=== PATIENT | female | born 1945 | race Two or more races ===

== ENCOUNTER → 2017-10-29 | Outpatient (REF) | payer MEDICARE, OTHER ==
[2017-10-29 12:42] LABS: ESTIMATED AVERAGE GLUCOSE 131 MG/DL (60-110); HEMOGLOBIN A1c 6.2 %
[2017-10-29 12:52] LABS: CHOLESTEROL LEVEL 232 MG/DL (<200); HDL CHOLESTEROL 50 MG/DL (>40); LDL CHOLESTEROL 142.6 MG/DL (<100); NON-HDL-C 182 MG/DL; TRIGLYCERIDES LEVEL 197 MG/DL (<150)
[2017-10-29 13:04] LABS: TOTAL 25(OH) VITAMIN D 34.4 NG/ML (30.0-100.0)
== END ==
LOC: M SFHCCLAY 08:48
DX: Z86.39 Personal history of other endocrine, nutritional and metabolic disease (principal); E78.5 Hyperlipidemia, unspecified; E55.9 Vitamin D deficiency, unspecified
CPT/HCPCS: 83036

== ENCOUNTER → 2018-05-27 | Outpatient (REF) | payer MEDICARE, OTHER ==
[2018-05-27 12:11] LABS: TOTAL 25(OH) VITAMIN D 46.7 NG/ML (30.0-100.0)
[2018-05-27 12:12] LABS: CHOLESTEROL LEVEL 225 MG/DL (<200); HDL CHOLESTEROL 50 MG/DL (>40); LDL CHOLESTEROL 142.2 MG/DL (<100); NON-HDL-C 175 MG/DL; TRIGLYCERIDES LEVEL 164 MG/DL (<150)
[2018-05-27 12:45] LABS: CREATININE, URINE 44.4 MG/DL; MALB URINE SIEMENS 5.7 MG/L; MAU/CREAT RATIO 12.8 MCG/MG (0.0-30.0); TOTAL PROTEIN,RANDOM URINE 6.1 MG/DL (0.0-12.0)
[2018-05-27 15:01] LABS: ESTIMATED AVERAGE GLUCOSE 123 MG/DL (60-110); HEMOGLOBIN A1c 5.9 %
== END ==
LOC: M SFHCCLAY 08:32
DX: E78.5 Hyperlipidemia, unspecified (principal); Z86.39 Personal history of other endocrine, nutritional and metabolic disease; E55.9 Vitamin D deficiency, unspecified
CPT/HCPCS: 83036

== ENCOUNTER → 2018-11-09 | Outpatient (CLI) | payer MEDICARE, OTHER ==
[~2018-11-09] MED LIST: BISO5TAB2 PO; HUMI40KI2 SC; LISI-542 PO; OMEP20CA3 PO; TRAM50TA2 PO; VITA50005 PO
--- NOTE | 2018-11-09 11:47 | REP ---
Chest two views HISTORY: Preop Comparison: None The lungs are clear. The heart is normal in size. The pulmonary vasculature is normal in appearance. The bony structure is intact. IMPRESSION: No acute disease.
[2018-11-09 12:25] LABS: HEMATOCRIT 40.1 % (36.0-47.0); HEMOGLOBIN 13.2 g/dl (12.0-15.5); MEAN CORPUSCULAR HEMOGLOBIN 27.9 pg (27.0-33.0); MEAN CORPUSCULAR HGB CONC 32.9 g/dl (32.0-36.5); MEAN CORPUSCULAR VOLUME 84.8 fl (80.0-96.0); PLATELET COUNT, AUTOMATED 214 10^3/uL (150-450); RED BLOOD COUNT 4.73 10^6/uL (4.00-5.40); WHITE BLOOD COUNT 6.5 10^3/uL (4.0-10.0)
[2018-11-09 12:54] LABS: ALBUMIN 3.5 GM/DL (3.2-5.2); ALT/SGPT 17 U/L (12-78); BILIRUBIN,TOTAL 1.5 MG/DL (0.2-1.0); BLOOD UREA NITROGEN 17 MG/DL (7-18); CALCIUM LEVEL 8.3 MG/DL (8.8-10.2); CARBON DIOXIDE LEVEL 30 MEQ/L (21-32); CHLORIDE LEVEL 104 MEQ/L (98-107); CREATININE FOR GFR 0.51 MG/DL (0.55-1.30); GLOMERULAR FILTRATION RATE > 60.0 (>39); GLUCOSE, FASTING 98 MG/DL (70-100); POTASSIUM SERUM 4.3 MEQ/L (3.5-5.1); SODIUM LEVEL 141 MEQ/L (136-145); TOTAL PROTEIN 6.1 GM/DL (6.4-8.2)
[2018-11-09 14:10] LABS: ERYTHROCYTE SEDIMENTATION RATE 7 mm/hr (0-30)
== END ==
LOC: M CLY 09:39
PROVIDERS: ATTEND Orthopaedic Surgery
DX: Z01.818 Encounter for other preprocedural examination (principal); M17.12 Unilateral primary osteoarthritis, left knee; K21.9 Gastro-esophageal reflux disease without esophagitis

== ENCOUNTER 2018-11-21 08:29 | Inpatient (IN) | payer MEDICARE, OTHER ==
--- NOTE | 2018-11-15 14:29 | HPE ---
DATE OF ANTICIPATED ADMISSION: 11/21/2018 HISTORY OF PRESENT ILLNESS: This is a pleasant female with continuing symptomatic left knee osteoarthritis. The patient has consented for a left total knee arthroplasty per Dr. Kranthi Mckeon. Medical optimization per Dr. Patel. X-rays are consistent with advanced osteoarthritis. ALLERGIES: Remote history of chest pain secondary to CODEINE. MEDICATIONS LIST: Includes; - lisinopril 5 mg one tablet orally before bedtime - bisoprolol hydrochlorothiazide 5-6.25 mg tablet one tablet orally once a day - omeprazole 20 mg tablet delayed release one tablet orally once a day - tramadol HCl 50 mg tablet one tablet as needed orally every 6 hours - Drisdol 50,000 units capsule one capsule orally weekly MEDICAL HISTORY: Includes; Left knee symptomatic osteoarthritis. Hypertension. Gastroesophageal reflux disease (GERD). Vitamin D deficiency. Obesity, high 270, low 199. Diabetes. SURGICAL HISTORY: Right leg for osteomyelitis in 1957. Ruptured disc, 1975 in the back. Cholecystectomy, 1982. Appendix, 1980. Complete hysterectomy, endometriosis 1985. Bariatric surgery, the sleeve, 2014. Colonoscopy at [facility], 2013. SOCIAL HISTORY: Former smoker age 36, quit. Rare ethanol intake. Denies illicit drugs. FAMILY HISTORY: Positive for heart disease, cancer, hypertension. REVIEW OF SYSTEMS: Denies chest pain, shortness of breath, dyspnea on exertion, fever, chills, malaise, upper respiratory or urinary tract symptoms. PHYSICAL EXAMINATION: Height 5 feet 5 inches, weight 215.2, temperature 98, respirations 18. Pulse 48. Blood pressure 119/72. She is a pleasant, well-developed, well-nourished, obese female in no acute distress. Alert and times three. Mood and affect are appropriate. She is ambulating without overt antalgia. She favors the right lower extremity. Bilateral lower extremity skin is intact. Benign noninfectious looking. Noted old, healed anterodistal lower leg scar site consistent with her osteomyelitis surgery. Left knee joint line tenderness, crepitance through flexion and extension. Bowels, soft, nontender times four. Chest rises symmetrically. Regular rate and rhythm. Lungs: Clear to auscultation. Neck: Supple. Negative jugular venous distention (JVD) or bruits. Normocephalic. LABS: GFR greater than 60. Creatinine for GFR was 0.51, anion gap 7, calcium level 8.3, bilirubin total 1.5, total protein 6.1. Chest x-ray: No acute disease. EKG was not made available to me today. All other remaining laboratory studies were unremarkable. IMPRESSION: 1. Symptomatic left knee osteoarthritis. 2. Patient consented for left total knee arthroplasty per Dr. Kranthi Mckeon. 3. Medical optimization per Dr. Patel. 4. On-call operating room (OR), 2 grams intravenous (IV) Kefzol in OR. 5. Sequential compression devices (SCDs) and thromboembolism deterrents (TEDs) in OR. Consent was updated today. [facility]
[~2018-11-21] VITALS: Ht 165.1 cm; Wt 106.6 kg
[2018-11-21] VITALS (7 sets, daily range): BP systolic 126–142; BP diastolic 62–72
[2018-11-21] MEDS ORDERED: MIDAZOLAM INJ 2 MG/2 ML VIAL (J2250) As Ordered ONE ×2 (08:40→09:38)
[2018-11-21] MEDS ORDERED: fentaNYL 100 MCG/2 ML INJECTION (J3010) As Ordered ONE ×2 (08:40→09:38)
[2018-11-21] MEDS ORDERED: PROPOFOL 200 MG/20 ML VIAL As Ordered ONE ×2 (08:40→11:43)
[2018-11-21] MEDS ORDERED: BUPIVACAINE/DEXTROSE 0.75% 2 ML AMP As Ordered ONE (08:48)
[2018-11-21] MEDS ORDERED: LR 1,000 ML IV SCH ×2 (09:00→13:00)
[2018-11-21] MEDS ORDERED: BUPIVACAINE LIPOSOME/PF 1.3% 20ML VIAL (13.3MG/ML)(EXPAREL)(C9290 PER1MG) As Ordered ONE (09:20)
[2018-11-21] MEDS ORDERED: EPINEPHrine INJ 1 MG/ML 1ML AMP As Ordered ONE (09:20)
[2018-11-21] MEDS ORDERED: ceFAZolin 1GM INJ (J0690 PER 500MG) As Ordered ONE (09:20)
[2018-11-21] MEDS ORDERED: TRANEXAMIC ACID 100 MG/ML 10ML VIAL As Ordered ONE ×2 (09:20→09:38)
[2018-11-21] MEDS ORDERED: MUPI2OI (09:26)
[2018-11-21] MEDS ORDERED: dexameTHASONE 10 MG/1 ML VIAL PRES.FREE (J1100) As Ordered ONE (09:43)
[2018-11-21 09:46] LABS: INR 0.97
[2018-11-21 09:47] LABS: PARTIAL THROMBOPLASTIN TIME 33.2 SECONDS (25.4-37.6)
[2018-11-21] MEDS ORDERED: fentaNYL 100 MCG/2 ML INJECTION (J3010) IV PRN ×2 (10:15→13:00)
[2018-11-21] MEDS ORDERED: MIDAZOLAM INJ 2 MG/2 ML VIAL (J2250) IV PRN (10:15)
[2018-11-21] MEDS ORDERED: ROPIvacaine 0.5% 30 ML INJECTION (J2795 PER 1MG) ONE (10:15)
[2018-11-21] MEDS ORDERED: LIDOCAINE 1% MDV 20ML VIAL ONE (10:15)
[2018-11-21] MEDS ORDERED: EPINEPHrine INJ 1 MG/ML 1ML AMP ONE (10:15)
--- NOTE | 2018-11-21 10:53 | IPN ---
DATE: 11/21/2018 The patient seen and examined and she wished to go ahead with a left total knee arthroplasty. She understands the nature of the procedure, the risks of bleeding, infection, damage to nerves, vessels, persistent pain, wear loosening, blood clots, medical problems, among others. PLAN: I am proceeding with a left knee arthroplasty and she has had a preoperative clearance.
[2018-11-21] MEDS ORDERED: ONDANSETRON 4MG/2ML VIAL (J2405) As Ordered ONE (11:28)
[2018-11-21] MEDS ORDERED: dexameTHASONE 4 MG/ML 1ML VIAL (J1100) As Ordered ONE (11:28)
[2018-11-21] MEDS ORDERED: KETOROLAC 60 MG/2 ML VIAL (J1885) As Ordered ONE (11:28)
[2018-11-21] MEDS ORDERED: FLEET ENEMA PR PRN (13:00)
[2018-11-21] MEDS ORDERED: PERCOCET 5MG/325MG TAB PO PRN (13:00)
[2018-11-21] MEDS ORDERED: METOCLOPRAMIDE INJ 10MG/2ML VIAL (J2765) IV PRN (13:00)
[2018-11-21] MEDS ORDERED: ACETAMINOPHEN TAB 650MG DOSE (2X325MG) PO PRN (13:00)
[2018-11-21] MEDS ORDERED: MORPHINE 4 MG/ML 1ML VIAL/SYRINGE (J2270) IV PRN (13:00)
[2018-11-21] MEDS ORDERED: ONDANSETRON 4MG/2ML VIAL (J2405) IV PRN ×2 (13:00)
--- NOTE | 2018-11-21 13:39 | REP ---
LEFT KNEE SERIES: Two views. HISTORY: Postop placement. FINDINGS: The patient is status post left knee arthroplasty. Arthroplasty components are well aligned. Anterior skin tj are seen. Anterior periarticular soft tissues show postoperative emphysema and swelling. IMPRESSION: Status post left knee arthroplasty. Electronically Signed by Tommy Logan MD 11/21/2018 03:17 P
[2018-11-21] MEDS: LR 1,000 ML IV SCH (14:19)
[2018-11-21] MEDS: PERCOCET 5MG/325MG TAB PO PRN ×2 (14:48→23:38)
[2018-11-21] MEDS: MORPHINE 4 MG/ML 1ML VIAL/SYRINGE (J2270) IV PRN ×2 (16:01→18:52)
[2018-11-22] VITALS (7 sets, daily range): BP systolic 132–160; BP diastolic 62–92
[2018-11-22] MEDS: LR 1,000 ML IV SCH (01:30)
[2018-11-22] MEDS: PERCOCET 5MG/325MG TAB PO PRN ×4 (06:08→19:07)
[2018-11-22] MEDS ORDERED: ONDANSETRON 4 MG TAB (S0181) PO PRN (06:45)
[2018-11-22 07:01] LABS: HEMATOCRIT 32.2 % (36.0-47.0); HEMOGLOBIN 10.7 g/dl (12.0-15.5); MEAN CORPUSCULAR HEMOGLOBIN 28.5 pg (27.0-33.0); MEAN CORPUSCULAR HGB CONC 33.2 g/dl (32.0-36.5); MEAN CORPUSCULAR VOLUME 85.6 fl (80.0-96.0); PLATELET COUNT, AUTOMATED 226 10^3/uL (150-450); RED BLOOD COUNT 3.76 10^6/uL (4.00-5.40); WHITE BLOOD COUNT 14.9 10^3/uL (4.0-10.0)
--- NOTE | 2018-11-22 07:19 | RO ---
DATE OF PROCEDURE: 11/21/2018 PREOPERATIVE DIAGNOSIS: Left knee osteoarthritis. POSTOPERATIVE DIAGNOSIS: Left knee osteoarthritis. PROCEDURE: Left total knee arthroplasty using an Attune rotating platform posterior stabilized size 5 femur and 5 tibia, 8 polyethylene, 32 patellar button. SURGEON: Dr. Kranthi Mckeon. CONTACT WORKER LITHOGRAPHY: BRANDI Rod ANESTHESIA: Spinal. ESTIMATED BLOOD LOSS Less than 50. COMPLICATIONS: None. INDICATIONS: This is a 73-year-old woman who has had gradually worsening left knee pain. She has been refractory to conservative management and wished to go ahead with surgical treatment. She understood the nature of this, the risks of bleeding, infection, damage to nerves, vessels, persistent pain, wear, loosening, blood clots, medical problems, among others. PROCEDURE: The patient taken to the operating room and placed in supine position after spinal anesthesia was induced. The left lower extremity was prepped and draped in usual sterile fashion. Tourniquet was inflated. Time-out was performed. I then created a longitudinal incision over the anterior aspect of the left knee and a medial parapatellar arthrotomy was performed per routine. I everted the patella, flexed the knee up. She was in a fair amount of valgus. The canal initiating reamer on the femoral side followed by the intramedullary guide set at 7 degrees of valgus and 9 mm cut. This was pinned in place by the clerical dentist assistant and a distal femoral cut was made while protecting soft tissues. Appropriate amount of bone was removed. I then sized the femur to be a 5, made the pin holes in the end of the femur and the external rotation guide set and placed the 5 cutting block. This was secured in place. The remaining four cuts were made and removed the bone. I then placed the posterior retractor and prepared the tibia, removed what turned out to be 8 from the high side and about 4 from the low side and made the saw cut making the appropriate amount of valgus and posterior slope with the alignment guide and made the saw cut. The bone was removed. I then used the paper goods machine set up operator to remove osteophytes and soft tissue from either side of the knee. We then prepared the box. I had anticipated using a posterior stabilized knee because of the significant valgus she had. The box cut was made in the usual fashion. Removed excess bone. I then used the spacer blocks and it was felt the size 8 was appropriate in flexion/extension. I then prepared the tibia. We drilled, broached and placed the trial components. Put the knee through range of motion. Excellent alignment and stability. Soft tissue balance was noted. Then prepared the patella. I freehand cut removing about 7 mm of bone and sized the tibia 32. Drill holes were placed and the patella tracked reasonably well, it was a little bit off laterally so I did a lateral release. I then drilled the holes in the end of the femur. Again very pleased with the alignment. The patella tracked very nicely. The clerical dentist assistant prepared the bone cement in modern technique. I irrigated the bony surfaces, placed the Exparel in the deep tissues and dried the surfaces, cemented on the tibia and femur, placed the polyethylene, removed all excess bone cement and then cemented on the patella holding this in place with a clamp, removed excess bone cement. Removed the clamp once the cement was hard. I irrigated, copiously placed the TXA deep in the tissues then repaired the deep layer with #1 Vicryl suture and running Stratafix suture for watertight closure. Put the knee through range of motion. Excellent stability was noted and alignment. There was no clicking or catching. I then irrigated the subcu and closed with #2-0 Vicryl, skin with tj. Sterile dressing was applied. Tourniquet was deflated and she was taken to recovery room in stable condition. There were no known complications. The clerical dentist assistant was instrumental in holding retractors and mixing the bone cement, assisting in wound closure and making distal femoral cut under my direct supervision.
[2018-11-22] MEDS: MOM 30ML SUSPENSION UDC PO SCH (09:01)
[2018-11-22] MEDS: MIRALAX *UNIT DOSE* 17GM PACKET PO SCH (09:01)
[2018-11-22] MEDS: OMEPRAZOLE 20 MG CAP PO SCH (10:43)
[2018-11-22 11:19] LABS: BLOOD UREA NITROGEN 19 MG/DL (7-18); CALCIUM LEVEL 8.4 MG/DL (8.8-10.2); CARBON DIOXIDE LEVEL 27 MEQ/L (21-32); CHLORIDE LEVEL 102 MEQ/L (98-107); CREATININE FOR GFR 0.67 MG/DL (0.55-1.30); GLOMERULAR FILTRATION RATE > 60.0 (>39); GLUCOSE, FASTING 139 MG/DL (70-100); POTASSIUM SERUM 3.9 MEQ/L (3.5-5.1); SODIUM LEVEL 139 MEQ/L (136-145)
--- NOTE | 2018-11-22 11:57 | IPNPDOC ---
Subjective Date Seen The patient was seen on 11/22/18. Subjective Chief Complaint/HPI Please see Dr. Patel's pre-op consult note from 11/10 for initial consultation information. Patient seen at bedside post-op day 1. She reports no fevers, chills, chest pain, dyspnea, swelling in her extremities, dizziness, or headaches. She does complain of leg soreness from the procedure. Constitutional: Denies: Chills, Fever ENT: Denies: Head Aches Pulmonary: Denies: Dyspnea Cardiovascular: Denies: Chest Pain, Palpitations, Edema, Lt Headedness Gastrointestinal: Denies: Nausea, Vomiting, Abdominal Pain Musculoskeletal: Reports: Leg Pain (states left extremity is sore, but pain is tolerable) Objective Physical Examination General Exam: Positive: Alert, Cooperative, No Acute Distress Eye Exam: Positive: Conjunctiva & lids normal, EOMI; Negative: Sclera icteric ENT Exam: Positive: Atraumatic, Mucous membr. moist/pink, Pharynx Normal Chest Exam: Positive: Clear to auscultation, Normal air movement; Negative: Rales, Rhonchi, Wheezing Heart Exam: Positive: Rate Normal, Normal S1, Normal S2; Negative: Murmurs, Rubs Abdomen Exam: Positive: Normal bowel sounds, Soft; Negative: Tenderness Extremity Exam: Positive: Other (LE wrapped in bandages. No drainage from suture site per ortho); Negative: Clubbing, Cyanosis, Edema Skin Exam: Positive: Nl turgor and temperature Psych Exam: Positive: Mood NL Assessment /Plan Problems (1) Status post total left knee replacement Status: Acute Response to Treatment: Stable Discussed With: Patient Problem Text: 11/22-Patient is post op day 1 follow surgical left total knee replacement for primary osteoarthiritis. Orthopedic surgery has consulted our service for medical management of the patient. Patient states her leg is painful, but tolerable with the percocet she is receiving. Will defer to ortho for maintenance of adequate pain control. (2) Leukocytosis Status: Acute Problem Text: Likely a result of inflammation and acute stress reactants from surgery, will continue to monitor. (3) Essential hypertension Status: Chronic Problem Text: Will restart home blood pressure meds pending results of BMP (4) GERD (gastroesophageal reflux disease) Status: Chronic Response to Treatment: Stable Problem Text: Will restart home omeprazole (5) Hyperlipidemia Status: Chronic Response to Treatment: Stable Problem Text: Will restart home medications (6) Plaque psoriasis Status: Chronic Response to Treatment: Stable Problem Text: Will defer to ortho for when it is appropriate to restart the patient's humira. Stop date was 10/25/18 in preparation for surgery. (7) Diabetes Status: Chronic Response to Treatment: Stable Problem Text: Diabetes controlled by gastric sleeve procedure. Last A1C of 5.9%. Continue with consistent carbohydrate diet. Plan/VTE VTE Prophylaxis Ordered?: Yes VS, I&O, 24H, Fishbone Vital Signs/I&O Vital Signs Date Time Temp Pulse Resp B/P (MAP) Pulse Ox O2 Delivery O2 Flow Rate FiO2 11/22/18 10:44 16 11/22/18 10:00 98.3 92 160/92 (114) 93 11/21/18 13:08 2 I&O- Last 24 Hours up to 6 AM 11/22/18 06:00 Intake Total 2560 ml Output Total 950 ml Balance 1610 ml Laboratory Data 24H LABS Laboratory Tests 2 11/22/18 06:19: Nucleated Red Blood Cells % (auto) 0.0, Anion Gap 10, Glomerular Filtration Rate > 60.0, Blood Urea Nitrogen 19H, Creatinine 0.67, Sodium Level 139, Potassium Level 3.9, Chloride Level 102, Carbon Dioxide Level 27, Calcium Level 8.4L CBC/BMP Laboratory Tests 11/22/18 06:19 Red Blood Count 3.76 L, Mean Corpuscular Volume 85.6, Mean Corpuscular Hemoglobin 28.5, Mean Corpuscular Hemoglobin Concent 33.2, Red Cell Distribution Width 13.2, Calcium Level 8.4 L GME ATTESTATION GME ATTESTATION My faculty preceptor for this patient encounter was physically present during the encounter and was fully available. All aspects of the patient interview, examination, medical decision making process, and medical care plan development were reviewed and approved by the faculty preceptor. The faculty preceptor is aware and concurs with the plan as stated in the body of this note and will at test to such by his/her cosignature. DIMPLE SANZ DO Nov 22, 2018 11:57 Dimple Patel MD Nov 22, 2018 12:51
[2018-11-22] MEDS: HYDROCHLOROthiazide 6.25MG PER 1/4TAB PO SCH (13:25)
[2018-11-22] MEDS: BISOPROLOL FUMARATE 5 MG TAB PO SCH (13:25)
[2018-11-22] MEDS ORDERED: RIVAROXABAN 10 MG TAB (XARELTO) PO SCH (18:00)
[2018-11-22] MEDS ORDERED: LISINOPRIL 5 MG TAB PO SCH (21:00)
[2018-11-23] MEDS: PERCOCET 5MG/325MG TAB PO PRN ×3 (00:59→10:38)
[2018-11-23 06:00] VITALS: BP 156/74
[2018-11-23] MEDS ORDERED: XARE10TA PO (06:18)
[2018-11-23] MEDS ORDERED: PERC5TAB12 PO (06:18)
[2018-11-23 06:52] LABS: HEMATOCRIT 27.9 % (36.0-47.0); HEMOGLOBIN 9.1 g/dl (12.0-15.5); MEAN CORPUSCULAR HEMOGLOBIN 28.3 pg (27.0-33.0); MEAN CORPUSCULAR HGB CONC 32.6 g/dl (32.0-36.5); MEAN CORPUSCULAR VOLUME 86.9 fl (80.0-96.0); PLATELET COUNT, AUTOMATED 183 10^3/uL (150-450); RED BLOOD COUNT 3.21 10^6/uL (4.00-5.40); WHITE BLOOD COUNT 10.1 10^3/uL (4.0-10.0)
--- NOTE | 2018-11-23 08:25 | IPNPDOC ---
Subjective Date Seen The patient was seen on 11/23/18. Subjective Chief Complaint/HPI Feels well today. Pain controlled. Eating well without n/v. Constitutional: Denies: Chills, Fever Pulmonary: Denies: Dyspnea, Cough Cardiovascular: Denies: Chest Pain, Palpitations Gastrointestinal: Reports: Constipation (No BM yet - bowel care ordered. p assing gas); Denies: Nausea, Vomiting, Abdominal Pain, Diarrhea Objective Physical Examination General Exam: Positive: Alert, Cooperative, No Acute Distress Eye Exam: Positive: Conjunctiva & lids normal, EOMI ENT Exam: Positive: Atraumatic, Mucous membr. moist/pink, Pharynx Normal Chest Exam: Positive: Clear to auscultation, Normal air movement Heart Exam: Positive: Rate Normal, Normal S1, Normal S2 Abdomen Exam: Positive: Normal bowel sounds, Soft Extremity Exam: Positive: Other Skin Exam: Positive: Nl turgor and temperature Psych Exam: Positive: Mood NL Assessment /Plan Problems (1) Status post total left knee replacement Status: Acute Response to Treatment: Stable Discussed With: Patient Problem Text: 11/23 - Per Ortho 11/22-Patient is post op day 1 follow surgical left total knee replacement for primary osteoarthiritis. Orthopedic surgery has consulted our service for medical management of the patient. Patient states her leg is painful, but tolerable with the percocet she is receiving. Will defer to ortho for maintenance of adequate pain control. (2) Leukocytosis Status: Acute Response to Treatment: Improving Problem Text: Likely a result of inflammation and acute stress reactants from surgery, will continue to monitor. (3) Essential hypertension Status: Chronic Response to Treatment: Stable Problem Text: 11/23 - home BP meds restarted (4) Plaque psoriasis Status: Chronic Response to Treatment: Stable Problem Text: Will defer to ortho for when it is appropriate to restart the patient's humira. Stop date was 10/25/18 in preparation for surgery. (5) GERD (gastroesophageal reflux disease) Status: Chronic Response to Treatment: Stable Problem Text: Will restart home omeprazole (6) Hyperlipidemia Status: Chronic Response to Treatment: Stable Problem Text: Will restart home medications (7) Diabetes Status: Chronic Response to Treatment: Stable Problem Text: Diabetes controlled by gastric sleeve procedure. Last A1C of 5.9%. Continue with consistent carbohydrate diet. Plan/VTE VTE Prophylaxis Ordered?: Yes Disposition Medically stable for d/c when clear by Pt and ortho VS, I&O, 24H, Fishbone Vital Signs/I&O Vital Signs Date Time Temp Pulse Resp B/P (MAP) Pulse Ox O2 Delivery O2 Flow Rate FiO2 11/23/18 06:36 15 11/23/18 06:00 97.8 94 156/74 (101) 99 11/21/18 13:08 2 I&O- Last 24 Hours up to 6 AM 11/23/18 06:00 Intake Total 2040 ml Output Total 2400 ml Balance -360 ml Laboratory Data 24H LABS Laboratory Tests 2 11/22/18 20:09: Bedside Glucose (Misc Panel) 229H 11/23/18 06:19: Nucleated Red Blood Cells % (auto) 0.0 11/23/18 06:31: Bedside Glucose (Misc Panel) 127H CBC/BMP Laboratory Tests 11/23/18 06:19 Red Blood Count 3.21 L, Mean Corpuscular Volume 86.9, Mean Corpuscular Hemoglobin 28.3, Mean Corpuscular Hemoglobin Concent 32.6, Red Cell Distribution Width 13.5 DIOR PRYOR PA-C Nov 23, 2018 08:24
[2018-11-23 08:57] VITALS: BP 154/72
[2018-11-23] MEDS: MOM 30ML SUSPENSION UDC PO SCH (09:00)
[2018-11-23] MEDS ORDERED: BISOPROLOL FUMARATE 5 MG TAB PO SCH (09:00)
[2018-11-23] MEDS ORDERED: HYDROCHLOROthiazide 6.25MG PER 1/4TAB PO SCH (09:00)
[2018-11-23] MEDS: MIRALAX *UNIT DOSE* 17GM PACKET PO SCH (09:00)
[2018-11-23 10:34] VITALS: BP 141/91
[2018-11-23] MEDS: BISOPROLOL FUMARATE 5 MG TAB PO SCH (10:34)
[2018-11-23] MEDS: HYDROCHLOROthiazide 6.25MG PER 1/4TAB PO SCH (10:35)
[2018-11-23] MEDS: OMEPRAZOLE 20 MG CAP PO SCH (10:35)
--- NOTE | 2018-11-25 12:16 | DSES ---
DATE OF ADMISSION: 11/21/2018 DATE OF DISCHARGE: 11/23/2018 ATTENDING PHYSICIAN: Dr. Kranthi Mckeon ADMISSION DIAGNOSIS: Osteoarthritis left knee. OTHER DIAGNOSES: Hypertension, gastroesophageal reflux disease, vitamin D deficiency, obesity, diabetes. DISCHARGE DIAGNOSIS: Osteoarthritis left knee status post left total knee arthroplasty. OPERATION PERFORMED: Left total knee arthroplasty. HISTORY: This is a pleasant female patient with worsening left knee pain and stiffness who failed to improve with conservative management. She was admitted for elective left total knee replacement. HOSPITAL COURSE: The patient was admitted on the day of surgery and underwent left total knee arthroplasty, which was uneventful. She did well in the postoperative period and hospital course was without complications. She was up with physical therapy per their protocol and pain was controlled on the day of discharge. She was doing well weightbearing as tolerated on the left lower extremity and will follow deep vein thrombosis (DVT) prophylaxis per protocol. She will resume her preoperative medications and diet, along with oral pain medications for pain control. She was given instructions to include but not limited to wound monitoring and activity limitations. She will follow up in our office in 10-14 days for surgical followup. Please refer to the medical record for further details.
== END 2018-11-23 13:40 | disposition home health service (06) | DRG 470 ==
LOC: M OR 08:29 → M MS5PR 13:25
PROVIDERS: ADMIT Orthopaedic Surgery; ATTEND Orthopaedic Surgery
PROC: 0SRD0J9 Replacement of Left Knee Joint with Synthetic Substitute, Cemented, Open Approach (ICD-10-PCS; principal; 2018-11-21 10:15)
DX: M17.12 Unilateral primary osteoarthritis, left knee (principal); Z79.899 Other long term (current) drug therapy; I10 Essential (primary) hypertension; K21.9 Gastro-esophageal reflux disease without esophagitis; E66.9 Obesity, unspecified; E11.9 Type 2 diabetes mellitus without complications; E55.9 Vitamin D deficiency, unspecified; Z87.891 Personal history of nicotine dependence; E78.5 Hyperlipidemia, unspecified; L40.0 Psoriasis vulgaris

== ENCOUNTER → 2019-01-19 | Outpatient (REF) | payer MEDICARE, OTHER ==
[~2019-01-19] MED LIST changes: +MUPI2OI; +PERC5TAB12 PO; +XARE10TA PO
[2019-01-19 12:51] LABS: CHOLESTEROL RISK RATIO 4.836 (<5)
[2019-01-19 12:54] LABS: TOTAL 25(OH) VITAMIN D 57.4 NG/ML (30.0-100.0)
== END ==
LOC: M SFHCCLAY 08:18
PROVIDERS: ATTEND Nurse Practitioner Family
DX: E78.5 Hyperlipidemia, unspecified (principal); E55.9 Vitamin D deficiency, unspecified

== ENCOUNTER → 2019-01-31 | Outpatient (REF) | payer MEDICARE, OTHER | LOC: M LABDRAWC 17:19 | PROVIDERS: ATTEND Nurse Practitioner Family | DX: Z51.81 Encounter for therapeutic drug level monitoring (principal); L40.0 Psoriasis vulgaris; Z79.899 Other long term (current) drug therapy ==

== ENCOUNTER → 2019-04-25 | Outpatient (REF) | payer MEDICARE, OTHER ==
[~2019-04-25] MED LIST changes: -OMEP20CA3 PO; +OMEP20CA4 PO
[2019-04-25 13:11] LABS: BILIRUBIN,DIRECT 0.3 MG/DL (0.0-0.2); BILIRUBIN,TOTAL 1.7 MG/DL (0.2-1.0)
[2019-04-25 13:12] LABS: ALBUMIN 3.5 GM/DL (3.2-5.2); CHOLESTEROL RISK RATIO 3.61 (<5); TOTAL PROTEIN 6.4 GM/DL (6.4-8.2)
== END ==
LOC: M SFHCCLAY 07:33
PROVIDERS: ATTEND Nurse Practitioner Family
DX: E78.5 Hyperlipidemia, unspecified (principal)

== ENCOUNTER → 2019-06-13 | Outpatient (CLI) | payer MEDICARE, OTHER ==
--- NOTE | 2019-06-13 14:34 | REP ---
PA and lateral chest: Comparison is 11/09/2018. The lung padilla are clear. The cardiac size is normal. The len, mediastinum, and skeletal structures are unremarkable. Impression: Negative PA and lateral chest. There is no interval change. Electronically Signed by Isaiah Brown MD 06/13/2019 02:26 P
[2019-06-13 14:38] LABS: HEMATOCRIT 40.7 % (36.0-47.0); HEMOGLOBIN 13.3 g/dl (12.0-15.5); MEAN CORPUSCULAR HEMOGLOBIN 29.2 pg (27.0-33.0); MEAN CORPUSCULAR HGB CONC 32.7 g/dl (32.0-36.5); MEAN CORPUSCULAR VOLUME 89.3 fl (80.0-96.0); PLATELET COUNT, AUTOMATED 235 10^3/uL (150-450); RED BLOOD COUNT 4.56 10^6/uL (4.00-5.40); WHITE BLOOD COUNT 7.9 10^3/uL (4.0-10.0)
[2019-06-13 14:49] LABS: INR 0.96; PROTHROMBIN TIME 12.5 SECONDS (11.8-14.0)
[2019-06-13 14:54] LABS: ALBUMIN 3.5 GM/DL (3.2-5.2); ALT/SGPT 18 U/L (12-78); BILIRUBIN,TOTAL 0.9 MG/DL (0.2-1.0); BLOOD UREA NITROGEN 14 MG/DL (7-18); CALCIUM LEVEL 8.9 MG/DL (8.8-10.2); CARBON DIOXIDE LEVEL 32 MEQ/L (21-32); CHLORIDE LEVEL 106 MEQ/L (98-107); CREATININE FOR GFR 0.56 MG/DL (0.55-1.30); GLOMERULAR FILTRATION RATE > 60.0 (>39); GLUCOSE, FASTING 118 MG/DL (70-100); POTASSIUM SERUM 4.2 MEQ/L (3.5-5.1); SODIUM LEVEL 143 MEQ/L (136-145); TOTAL PROTEIN 6.3 GM/DL (6.4-8.2)
[2019-06-13 15:16] LABS: ERYTHROCYTE SEDIMENTATION RATE 8 mm/hr (0-30)
--- NOTE | 2019-06-14 06:06 | ECGEPIP ---
[facility] Test Date: 2019-06-13 Pat Name: JOSEPH MORAES Department: Room: - Gender: Female Post Graduate Intern: RF : 1945 Requested By: Wilfrido Dennison Order Number: [id number] Reading MD: Moisés Ceja Measurements Intervals [place] Rate: 70 P: 36 WA: 178 QRS: 8 QRSD: 98 T: 19 QT: 386 QTc: 419 Interpretive Statements Normal sinus rhythm Delayed anterior R-wave progression Comparison tracing not on file Electronically Signed on 06-14-2019 6:06:29 EDT by Moisés Ceja
== END ==
LOC: M LAB 13:24
PROVIDERS: ATTEND Family Medicine
DX: Z01.818 Encounter for other preprocedural examination (principal); Z79.01 Long term (current) use of anticoagulants

== ENCOUNTER 2019-07-03 09:24 | Inpatient (IN) | payer MEDICARE, OTHER ==
--- NOTE | 2019-06-29 14:17 | HPE ---
DATE OF ADMISSION: 07/03/2019 HISTORY OF PRESENT ILLNESS: This is a pleasant female with continuing symptomatic right knee osteoarthritis. She has consented for right total knee arthroplasty per Dr. Kranthi Mckeon. Medical optimization was completed by Dr. Wilfrido Patel on 06/20/2019. X-rays are consistent with advanced tricompartmental valgus knee degenerative joint disease (DJD). ALLERGIES: CODEINE, this is probably more of a reaction. MEDICATIONS INCLUDE: - pravastatin sodium 20 mg tablet orally once a day - Humira 40 mg 4/0.80 mL prefilled syringe kit 0.8 mL subcutaneous every other week which is on hold for right total knee. - bisoprolol hydrochlorothiazide 5-6.25 mg tablet one tablet orally once a day. - omeprazole 20 mg tablet delayed release one tablet orally once a day - lisinopril 5 mg tablet one tablet orally before bedtime - Drisdol 50,000 units capsule one capsule orally weekly - Tramadol HCl 50 mg tablet as needed orally every 6 hours ACTIVE PROBLEM LIST. Right knee osteoarthritis. Essential hypertension. Hyperlipidemia. Unspecified hyperlipidemia type. Gastroesophageal reflux disease. Vitamin D deficiency. Other chronic pain. History of diabetes mellitus. Plaque psoriasis. History of total knee arthroplasty date of surgery 11/21/2018. PAST SURGICAL HISTORY: Right leg osteomyelitis 1957. Injured back ruptured disc 1975. Tubular also remove the appendix 1980. Gallbladder removed 1982. Complete hysterectomy, endometriosis 1985. Bariatric surgery, the sleeve 2014. Colonoscopy at [facility]) 2013. Left knee surgery Dr. Mckeon 2018. FAMILY HISTORY: Heart disease and cancer. SOCIAL HISTORY: She is a former smoker, quit at 36. Denies illicit drugs or excessive alcohol intake. She drinks two glasses of wine per month. REVIEW OF SYSTEMS: Denies chest pain, shortness of breath, dyspnea on exertion, fever, chills, malaise, upper respiratory or urinary tract symptoms. Medical clearance as noted above. LAB: Preop by [facility] service date 06/26/[address] Wilfrido Patel. Glucose elevated at 118, anion gap was 5, total protein 6.3, otherwise unremarkable. Chest x-ray via [facility] service date 06/13/2019. Negative PA and lateral chest. No interval change. EKG normal sinus rhythm, delayed anterior R-wave progression as read by Dr. Moisés Ceja service date 06/21/2019. PHYSICAL EXAMINATION: Height 5 feet, 5 inches, weight 213, temperature 98.2, BP 120/60, pulse 80, respiration 19. This is a pleasant well-developed, well-nourished obese female in no acute distress. She is alert and times three. Mood and affect are appropriate. She is ambulating with favoring of her left lower extremity, right lower extremity. Bilateral lower extremity skin temperature cold, sensory motor within normal limits. She has right knee lateral joint line tenderness palpation and crepitance above the knee through flexion/extension, range of motion 0 past 100. Patellofemoral joint congruent, static, and dynamic. Negative popliteal fossa masses or pain. Right hip range of motion is not grossly limited or irritable through internal or external range of motion. Bowel sounds times four, soft, nontender. Chest: Rises symmetrically. Regular rate and rhythm. Lungs: Clear to auscultation. Neck: No neck supple. Negative jugular venous distention (JVD) or bruits. Normocephalic. IMPRESSION: 1. Right knee symptomatic tricompartmental valgus knee DJD. 2. Patient consented for right total knee arthroplasty per Dr. Kranthi Mckeon. 3. Medical optimization per Dr. Wilfrido Patel. 4. order caller to operating room (OR) 2 grams IV Kefzol in OR. 5. Sequential compression device (SCD) and thromboembolic deterrent stockings (TEDS) in OR. INDICATION Hydrated. MTDD
[~2019-07-03] VITALS: Ht 165.1 cm; Wt 98.3 kg
[~2019-07-03 09:24] MED LIST changes: +LR 1,000 ML IV ONE; +ceFAZolin SOD 2 GM in IV 1 EA IV ONE; +fentaNYL 100 MCG/2 ML INJECTION (J3010) IV SCH
[2019-07-03] MEDS ORDERED: fentaNYL 100 MCG/2 ML INJECTION (J3010) As Ordered ONE ×2 (10:10→11:17)
[2019-07-03] MEDS ORDERED: PROPOFOL 500 MG/50 ML VIAL As Ordered ONE (10:10)
[2019-07-03] MEDS ORDERED: ONDANSETRON 4MG/2ML VIAL (J2405) As Ordered ONE (10:11)
[2019-07-03] MEDS ORDERED: LIDOCAINE 2% INJ 100 MG/5 ML SDV (FOR ANES.) As Ordered ONE (10:11)
[2019-07-03] MEDS ORDERED: dexameTHASONE 4 MG/ML 1ML VIAL (J1100) As Ordered ONE (10:11)
--- NOTE | 2019-07-03 11:05 | IPN ---
DATE: 07/03/2019 Patient seen and examined. She wished to go ahead with a right total knee arthroplasty. She understands the nature of this, the risks of bleeding, infection, damage to nerves, vessels, persistent pain, wear, loosening, blood clots, medical problems, , among others.
[2019-07-03] MEDS ORDERED: EPINEPHrine INJ 1 MG/ML 1ML AMP As Ordered ONE (11:10)
[2019-07-03] MEDS ORDERED: TRANEXAMIC ACID 100 MG/ML 10ML VIAL As Ordered ONE (11:10)
[2019-07-03] MEDS ORDERED: ceFAZolin 1GM INJ (J0690 PER 500MG) As Ordered ONE (11:10)
[2019-07-03] MEDS ORDERED: BUPIVACAINE LIPOSOME/PF 1.3% 20ML VIAL (13.3MG/ML)(EXPAREL)(C9290 PER1MG) As Ordered ONE (11:10)
[2019-07-03] MEDS ORDERED: MIDAZOLAM INJ 2 MG/2 ML VIAL (J2250) As Ordered ONE ×3 (11:17→12:38)
[2019-07-03] MEDS ORDERED: MIDAZOLAM INJ 2 MG/2 ML VIAL (J2250) IV ONE (12:00)
[2019-07-03] MEDS ORDERED: ROPIvacaine 0.5% 30 ML INJECTION (J2795 PER 1MG) ONE (14:18)
[2019-07-03] MEDS ORDERED: EPINEPHrine INJ 1 MG/ML 1ML AMP ONE (14:18)
[2019-07-03] MEDS ORDERED: dexameTHASONE 10 MG/1 ML VIAL PRES.FREE (J1100) ONE (14:18)
--- NOTE | 2019-07-03 14:29 | RO ---
DATE OF PROCEDURE: 07/03/2019 PREOPERATIVE DIAGNOSIS: Right knee osteoarthritis. POSTOPERATIVE DIAGNOSIS: Right knee osteoarthritis. PROCEDURE: Right total knee arthroplasty using an ATTUNE rotating platform posterior stabilized size 5 femur and tibia, size 10 polyethylene and 35 patellar button. SURGEON: Kranthi Mckeon MD ACCOUNTS PAYABLES CLERK: BRANDI Marie ANESTHESIA: Spinal ESTIMATED BLOOD LOSS: Less than 50 mL. COMPLICATIONS: None. INDICATIONS: 73-year woman with worsening arthritis wished to go ahead with a knee replacement. PROCEDURE: The patient was taken to the operating room and placed in supine position after spinal anesthesia was induced. The right lower extremity was prepped and draped in the usual sterile fashion. Time out was performed. Tourniquet was inflated. A longitudinal incision was made over the anterior aspect of the right knee. I then created a curvilinear incision around the medial retinaculum and everted the patella, flexed the knee after using a canal initiating reamer followed by the intramedullary guide set at 5 degrees of valgus 9 mm cut, pinned in place by the traffic assistant and the distal femoral cut was made. The femur was sized to be a 5. This was pinned in place on the end of the femur with the external rotation dialed in and then secured the size 5 cutting block. The remaining cuts were made protecting soft tissues. Then prepared the tibia, freed up the PCL and the retractors were placed, placed the tibial alignment guide in appropriate amount of valgus and posterior slope and then pinned this in place, made the proximal tibia cut. This bone was removed. The PCL was carefully removed with the cautery and then I used the box cutting guide on the femoral side to create the remaining three cuts. I then used a tactical deception plans officer to remove soft tissue and osteophytes from either side of the knee and prepared the tibial surface, size 5 fit nicely. This was pinned in place, drilled, broached and then the trial components were placed and put the knee through a range of motion. I had also use spacer blocks prior to this and felt that the size 10 was most appropriate in flexion and extension. The trial components with a size 10 were very well aligned, had good stability, full extension. Excellent stability and alignment in flexion. I then freehand cut the patella removing about 7-8 mm of bone, sized to be a 35, the drill holes were placed in the end of the femur. The traffic assistant prepared the bone cement in the modern technique on the back table. I irrigated the bony surfaces, injected the Exparel in the deep tissues and cemented in the components, removing excess bone cement, held the patella in place with a patellar clamp and placed the TXA in the deep wound. Removed the patellar clamp and closed the deep layer with a #1 Vicryl suture and running STRATAFIX suture. Final irrigation prior to final deep closure and then irrigated subcu, used #2-0 Vicryl and tj for the skin. Sterile dressing was applied. Tourniquet had been deflated. She was taken to recovery room in stable condition. There were no known complications. The plan will be routine postop. The traffic assistant was instrumental holding retractors and assisting in mixing the bone cement, assisting in wound closure.
[2019-07-03] MEDS ORDERED: PERCOCET 5MG/325MG TAB PO PRN ×2 (14:45→15:00)
[2019-07-03] MEDS ORDERED: FLEET ENEMA PR PRN (15:00)
[2019-07-03] MEDS ORDERED: fentaNYL 100 MCG/2 ML INJECTION (J3010) IV PRN (15:00)
[2019-07-03] MEDS ORDERED: LR 1,000 ML IV SCH (15:00)
[2019-07-03] MEDS ORDERED: ONDANSETRON 4MG/2ML VIAL (J2405) IV PRN ×2 (15:00)
[2019-07-03] MEDS ORDERED: MORPHINE 4 MG/ML 1ML VIAL/SYRINGE (J2270) IV PRN (15:00)
[2019-07-03] MEDS ORDERED: ACETAMINOPHEN TAB 650MG DOSE (2X325MG) PO PRN (15:00)
--- NOTE | 2019-07-03 15:14 | REP ---
Right knee: Two views. History: Postop. Findings: AP and lateral views of the right knee demonstrate anterior skin tj. Right knee arthroplasty components are well aligned with respect to their [place] bones. There is periarticular soft tissue edema and emphysema. Electronically Signed by Tommy Logan MD 07/03/2019 03:06 P
[2019-07-03 15:30] VITALS: BP 160/98
[2019-07-03] MEDS: LR 1,000 ML IV SCH (15:36)
[2019-07-03 16:00] VITALS: BP 159/95
[2019-07-03] MEDS: MORPHINE 4 MG/ML 1ML VIAL/SYRINGE (J2270) IV PRN ×2 (16:10→18:11)
[2019-07-03 16:30] VITALS: BP 161/82
--- NOTE | 2019-07-03 16:35 | HPEPDOC ---
General Date of Admission Jul 03, 2019 at 09:24 Date of Service: Jul 03, 2019 Chief Complaint The patient is a 73-year-old female admitted with a reason for visit of Osteoarthritis Right Knee. Source: Patient, RN/MD, Old records History of Present Illness Consultation Report Consultation requested by Dr Mckeon Consultation for management of medical comorbidities. HPI: This is a pleasant 73 year old female with continuing symptomatic right knee osteoarthritis due to advanced tricompartmental valgus knee degenerative joint disease (DJD). Patient has been admitted to the orthopedic service for elective right total knee replacement. Hospitalist has been consulted for management of medical comorbidities. Patient does not complain of any pain . no chest pain or sob, no nausea r vomiting or diarrhea. Home Medications Scheduled Adalimumab (Humira Pen) 40 Mg/0.8 Ml Kit, 40 MG SC Q2WK, (Reported) Bisoprolol/Hydrochlorothiazide (Bisoprolol-Hctz 5-6.25 mg Tab) 1 Tab Tab, 1 TAB PO DAILY, (Reported) Ergocalciferol (Vitamin D2) (Vitamin D2) 50,000 Unit Cap, 50,000 UNIT PO QWEEK, (Reported) Lisinopril (Lisinopril) 5 Mg Tab, 5 MG PO DAILY, (Reported) Omeprazole (Omeprazole) 20 Mg Cap, 20 MG PO DAILY, (Reported) Scheduled PRN Tramadol HCl (Tramadol HCl) 50 Mg Tab, 50 MG PO BIDP PRN for PAIN, (Reported) Allergies Coded Allergies: codeine (Verified Adverse Reaction, Intermediate, chest pains, 07/03/19) Past Medical History Medical History Essential hypertension. Hyperlipidemia. Gastroesophageal reflux disease. Vitamin D deficiency. h/o diabetes mellitus now resolved after gastric sleeve procedure. Plaque psoriasis on Humira H/o morbid obesity s/p gastric sleeve surgery Surgical History SURGERY RIGHT LEG FOR OSTEOMYELITIS 1957 INJURED BACK RUPTURED DISC 1975 TUBULAR PREG. ALSO REMOVED APPENDIX 1980 GALLBLADDER REMOVED 1982 COMPLETE HYSTERECTOMY, ENDOMETRIOSIS 1985 BARIATRIC SURGERY, THE SLEEVE 2015 COLONOSCOPY AT [facility] 2013 LEFT KNEE REPLACEMENT (DR. MCKEON) 2018 FAMILY HISTORY Family History FATHER: , DIAGNOSED WITH UNSPECIFIED HEART DISEASE MOTHER: , UNSPECIFIED HEART DISEASE 1 BROTHER(S) , 2 SISTER(S) . 1 BROTHER CANCER, 1 SISTER OF CARDIAC, 1 SISTER OF FOOD ALLERGY FAMILY HISTORY IS POSITIVE FOR HYPERTENSION, HEART DISEASE AND CANCER. Social History * Smoker: former Smoker Alcohol: Denies Drugs: denies A-FIB/CHADSVASC A-FIB History Current/History of A-Fib/PAF?: No Review of Systems Constitutional: Denies: Chills, Fever, Night Sweats Eyes: Denies: Pain, Vision change ENT: Denies: Head Aches, Ear Pain, Dysphagia Skin: Denies: Rash, Lesions, Breakdown Pulmonary: Denies: Dyspnea, Cough Cardiovascular: Denies: Chest Pain, Palpitations, Orthopnea, Paroxysmal Noc. Dyspnea, Lt Headedness Gastrointestinal: Denies: Nausea, Vomiting, Abdominal Pain, Diarrhea Genitourinary: Denies: Dysuria, Frequency, Incontinence, Retention Hematologic: Denies: Bruising, Bleeding Excessively Musculoskeletal: Denies: Neck Pain, Back Pain, Joint Pain, Muscle Pain, Spasms Physical Examination General Exam: Positive: Alert, Cooperative, No Acute Distress Eye Exam: Positive: PERRLA, Conjunctiva & lids normal, EOMI; Negative: Sclera icteric ENT Exam: Positive: Atraumatic, Mucous membr. moist/pink, Pharynx Normal Neck Exam: Positive: Supple; Negative: JVD, thyromegaly Chest Exam: Positive: Clear to auscultation, Normal air movement Heart Exam: Positive: Rate Normal, Regular Rhythm, Normal S1, Normal S2; Negative: Murmurs, Rubs Abdomen Exam: Positive: Normal bowel sounds, Soft; Negative: Tenderness, Hepatospenomegaly Extremity Exam: Positive: Normal pulses; Negative: Clubbing, Cyanosis, Edema Skin Exam: Positive: Nl turgor and temperature Vital Signs Vital Signs Date Time Temp Pulse Resp B/P (MAP) Pulse Ox O2 Delivery O2 Flow Rate FiO2 07/03/19 15:35 18 07/03/19 15:00 97.4 73 140/64 (89) 96 07/03/19 12:25 4 Assessment/Plan This is a pleasant 73 year old female with continuing symptomatic right knee osteoarthritis due to advanced tricompartmental valgus knee degenerative joint disease (DJD). Patient has been admitted to the orthopedic service for elective right total knee replacement. Hospitalist has been consulted for management of medical comorbidities. Patient does not complain of any pain . no chest pain or sob, no nausea or vomiting or diarrhea. S/P Right total knee arthroplasty due to advanced OA pain control and DVT prophylaxis as per orthopedics. Hypertension continue lisinopril and bisoprolol will hold HCTZ h/o Diabetes now resolved after gastric sleeve surgery. Plaque psoriasis no issues at present on Humira every 2 weeks. GERD continue omeprazole Plan / VTE VTE Prophylaxis Ordered?: Yes CLINTON ZUNIGA MD Jul 03, 2019 16:35
[2019-07-03 17:00] VITALS: BP 158/87
[2019-07-03 18:00] VITALS: BP 158/87
[2019-07-03] MEDS: PERCOCET 5MG/325MG TAB PO PRN (19:04)
[2019-07-03] MEDS: ceFAZolin SOD 2 GM in IV 1 EA IV SCH (20:39)
[2019-07-03 22:00] VITALS: BP 158/88
[2019-07-04] MEDS: PERCOCET 5MG/325MG TAB PO PRN ×4 (01:32→14:30)
[2019-07-04 02:00] VITALS: BP 138/77
[2019-07-04] MEDS: LR 1,000 ML IV SCH (04:20)
[2019-07-04 06:00] VITALS: BP 140/78
[2019-07-04] MEDS: ceFAZolin SOD 2 GM in IV 1 EA IV SCH (06:12)
[2019-07-04 06:22] LABS: HEMATOCRIT 34.4 % (36.0-47.0); HEMOGLOBIN 11.1 g/dl (12.0-15.5); MEAN CORPUSCULAR HEMOGLOBIN 27.5 pg (27.0-33.0); MEAN CORPUSCULAR HGB CONC 32.3 g/dl (32.0-36.5); MEAN CORPUSCULAR VOLUME 85.4 fl (80.0-96.0); PLATELET COUNT, AUTOMATED 234 10^3/uL (150-450); RED BLOOD COUNT 4.03 10^6/uL (4.00-5.40); WHITE BLOOD COUNT 12.4 10^3/uL (4.0-10.0)
[2019-07-04] MEDS ORDERED: XARE10TA PO (06:33)
[2019-07-04] MEDS ORDERED: PERC5TAB12 PO (06:33)
[2019-07-04 06:48] LABS: BLOOD UREA NITROGEN 17 MG/DL (7-18); CALCIUM LEVEL 8.4 MG/DL (8.8-10.2); CARBON DIOXIDE LEVEL 29 MEQ/L (21-32); CHLORIDE LEVEL 101 MEQ/L (98-107); CREATININE FOR GFR 0.51 MG/DL (0.55-1.30); GLOMERULAR FILTRATION RATE > 60.0 (>39); GLUCOSE, FASTING 135 MG/DL (70-100); SODIUM LEVEL 136 MEQ/L (136-145)
[2019-07-04 08:17] VITALS: BP 140/78
[2019-07-04] MEDS ORDERED: LISINOPRIL 5 MG TAB PO SCH (09:00)
[2019-07-04] MEDS ORDERED: MIRALAX *UNIT DOSE* 17GM PACKET PO SCH (09:00)
[2019-07-04] MEDS ORDERED: OMEPRAZOLE 20 MG CAP PO SCH (09:00)
[2019-07-04] MEDS ORDERED: BISOPROLOL FUMARATE 5 MG TAB PO SCH (09:00)
[2019-07-04] MEDS ORDERED: MOM 30ML SUSPENSION UDC PO SCH (09:00)
[2019-07-04] MEDS ORDERED: SENOKOT S TAB PO SCH (09:00)
[2019-07-04 10:00] VITALS: BP 152/85
[2019-07-04] MEDS ORDERED: RIVAROXABAN 10 MG TAB (XARELTO) PO SCH (18:00)
== END 2019-07-04 14:45 | disposition home health service (06) | DRG 470 ==
LOC: M OR 09:24 → M MS5PR 15:20
PROVIDERS: ADMIT Orthopaedic Surgery; ATTEND Orthopaedic Surgery
PROC: 0SRC0J9 Replacement of Right Knee Joint with Synthetic Substitute, Cemented, Open Approach (ICD-10-PCS; principal; 2019-07-03 12:00)
DX: M17.11 Unilateral primary osteoarthritis, right knee (principal); I10 Essential (primary) hypertension; E78.5 Hyperlipidemia, unspecified; K21.9 Gastro-esophageal reflux disease without esophagitis; E55.9 Vitamin D deficiency, unspecified; G89.29 Other chronic pain; L40.0 Psoriasis vulgaris; Z79.899 Other long term (current) drug therapy; Z87.891 Personal history of nicotine dependence

== ENCOUNTER → 2019-08-24 | Outpatient (REF) | payer MEDICARE, OTHER ==
[~2019-08-24] MED LIST changes: -LR 1,000 ML IV ONE; -ceFAZolin SOD 2 GM in IV 1 EA IV ONE; -fentaNYL 100 MCG/2 ML INJECTION (J3010) IV SCH
[2019-08-24 11:43] LABS: BASO # 0.1 10^3/uL (0.0-0.2); BASO % 0.9 % (0.0-1.0); EOS # 0.3 10^3/uL (0.0-0.5); EOS % 3.8 % (0.0-3.0); HEMATOCRIT 39.6 % (36.0-47.0); HEMOGLOBIN 12.6 g/dl (12.0-15.5); LYMPH # 3.4 10^3/uL (1.5-5.0); LYMPH % 49.4 % (24.0-44.0); MEAN CORPUSCULAR HEMOGLOBIN 27.6 pg (27.0-33.0); MEAN CORPUSCULAR HGB CONC 31.8 g/dl (32.0-36.5); MEAN CORPUSCULAR VOLUME 86.7 fl (80.0-96.0); MONO # 0.5 10^3/uL (0.0-0.8); MONO % 6.8 % (0.0-5.0); NEUTROPHILS # 2.7 10^3/uL (1.5-8.5); NEUTROPHILS % 38.8 % (36.0-66.0); PLATELET COUNT, AUTOMATED 242 10^3/uL (150-450); RED BLOOD COUNT 4.57 10^6/uL (4.00-5.40); WHITE BLOOD COUNT 6.9 10^3/uL (4.0-10.0)
[2019-08-24 11:58] LABS: ALBUMIN 3.3 GM/DL (3.2-5.2); ALT/SGPT 14 U/L (12-78); BILIRUBIN,TOTAL 1.3 MG/DL (0.2-1.0); BLOOD UREA NITROGEN 12 MG/DL (7-18); CALCIUM LEVEL 9.2 MG/DL (8.8-10.2); CARBON DIOXIDE LEVEL 31 MEQ/L (21-32); CHLORIDE LEVEL 104 MEQ/L (98-107); CHOLESTEROL LEVEL 222 MG/DL (<200); CHOLESTEROL RISK RATIO 4.723 (<5); CREATININE FOR GFR 0.55 MG/DL (0.55-1.30); FERRITIN 66 NG/ML (8-252); GLOMERULAR FILTRATION RATE > 60.0 (>39); GLUCOSE, FASTING 113 MG/DL (70-100); HDL CHOLESTEROL 47 MG/DL (>40); IRON (FE) 61 UG/DL (50-170); LDL CHOLESTEROL 132 MG/DL (<100); MAGNESIUM LEVEL 2.1 MG/DL (1.8-2.4); NON-HDL-C 175 MG/DL; PERCENT SATURATION 18.4 % (13.2-45.0); POTASSIUM SERUM 4.1 MEQ/L (3.5-5.1); SODIUM LEVEL 142 MEQ/L (136-145); TOTAL IRON BINDING CAPACITY 332 UG/DL (250-450); TOTAL PROTEIN 6.3 GM/DL (6.4-8.2); TRIGLYCERIDES LEVEL 215 MG/DL (<150)
[2019-08-24 12:10] LABS: TOTAL 25(OH) VITAMIN D 43.9 NG/ML (30.0-100.0)
[2019-08-24 12:11] LABS: VITAMIN B12 LEVEL 209 PG/ML (247-911)
[2019-08-24 12:12] LABS: FOLATE 9.3 NG/ML (>5.4)
[2019-08-24 13:08] LABS: HEMOGLOBIN A1c 5.9 %
== END ==
LOC: M SFHCCLAY 07:04
PROVIDERS: ATTEND Nurse Practitioner Family
DX: Z98.84 Bariatric surgery status (principal); Z86.39 Personal history of other endocrine, nutritional and metabolic disease; E78.5 Hyperlipidemia, unspecified; Z79.899 Other long term (current) drug therapy

== ENCOUNTER → 2019-11-20 | Outpatient (REF) | payer MEDICARE, OTHER ==
[~2019-11-20] MED LIST changes: +OMEP1CAP73 PO; -OMEP20CA4 PO
== END ==
LOC: M SFHCCLAY 10:50
PROVIDERS: ATTEND Family Medicine
DX: N30.00 Acute cystitis without hematuria (principal)
CPT/HCPCS: 81002; 87088; 87186; G0463

== ENCOUNTER → 2019-12-06 | Outpatient (REF) | payer MEDICARE, OTHER ==
[2019-12-06 11:00] LABS: BASO % 0.6 % (0.0-1.0); EOS # 0.2 10^3/uL (0.0-0.5); EOS % 3.2 % (0.0-3.0); HEMATOCRIT 42.4 % (36.0-47.0); HEMOGLOBIN 13.5 g/dl (12.0-15.5); LYMPH # 3.3 10^3/uL (1.5-5.0); LYMPH % 45.9 % (24.0-44.0); MEAN CORPUSCULAR HEMOGLOBIN 27.9 pg (27.0-33.0); MEAN CORPUSCULAR HGB CONC 31.8 g/dl (32.0-36.5); MEAN CORPUSCULAR VOLUME 87.6 fl (80.0-96.0); MONO # 0.5 10^3/uL (0.0-0.8); MONO % 6.6 % (0.0-5.0); NEUTROPHILS # 3.1 10^3/uL (1.5-8.5); NEUTROPHILS % 43.4 % (36.0-66.0); PLATELET COUNT, AUTOMATED 237 10^3/uL (150-450); RED BLOOD COUNT 4.84 10^6/uL (4.00-5.40); WHITE BLOOD COUNT 7.1 10^3/uL (4.0-10.0)
[2019-12-06 11:52] LABS: ERYTHROCYTE SEDIMENTATION RATE 10 mm/hr (0-30)
== END ==
LOC: M LABDRAW1 08:35
PROVIDERS: ATTEND Physician Assistant
DX: Z96.651 Presence of right artificial knee joint (principal)

== ENCOUNTER → 2020-02-23 | Outpatient (REF) | payer MEDICARE, OTHER ==
[2020-02-23 12:58] LABS: CHOLESTEROL RISK RATIO 4.42 (<5)
== END ==
LOC: M SFHCCLAY 07:37
PROVIDERS: ATTEND Nurse Practitioner Family
DX: E78.5 Hyperlipidemia, unspecified (principal)

== ENCOUNTER → 2020-06-13 | Outpatient (REF) | payer MEDICARE, OTHER ==
[2020-06-13 13:14] LABS: CHOLESTEROL RISK RATIO 4.51 (<5); TOTAL 25(OH) VITAMIN D 41.5 NG/ML (30.0-100.0)
== END ==
LOC: M SFHCCLAY 11:26
PROVIDERS: ATTEND Nurse Practitioner Family
DX: I10 Essential (primary) hypertension (principal); E78.5 Hyperlipidemia, unspecified; K21.9 Gastro-esophageal reflux disease without esophagitis; E55.9 Vitamin D deficiency, unspecified; Z86.39 Personal history of other endocrine, nutritional and metabolic disease; Z98.84 Bariatric surgery status

== ENCOUNTER → 2020-08-20 | Outpatient (REF) | payer MEDICARE, OTHER | LOC: M SFHCCLAY 08:32 | PROVIDERS: ATTEND Physician Assistant | DX: R35.0 Frequency of micturition (principal) | CPT/HCPCS: 81002; 87088; 87186; G0463 ==

== ENCOUNTER → 2020-08-30 | Outpatient (CLI) | payer MEDICARE, OTHER ==
--- NOTE | 2020-08-30 17:38 | REP ---
INDICATION: L40.0. Medication monitoring. COMPARISON: Comparison radiograph June 13, 2019. TECHNIQUE: Two views.. FINDINGS: The lungs are well inflated and free of infiltrate. The pleural angles are sharp. The heart size is normal. Pulmonary vasculature is not increased. No significant bony abnormality is seen. There are granulomatous lymph node calcifications again noted and in the right hilus. Vascular calcification is observed in the aorta. There are degenerative changes in the thoracic spine. IMPRESSION: No active disease.. <Electronically signed by Amari Logan > 08/30/20 [id number]
== END ==
LOC: M CLY 15:14
PROVIDERS: ATTEND Nurse Practitioner Family
DX: L40.0 Psoriasis vulgaris (principal); M51.34 Other intervertebral disc degeneration, thoracic region

== ENCOUNTER → 2020-10-31 | Outpatient (REF) | payer MEDICARE, OTHER ==
[~2020-10-31] MED LIST changes: -LISI-542 PO; +LISI-898 PO
== END ==
LOC: M LAB REF 13:46
PROVIDERS: ATTEND Dermatology
DX: D22.39 Melanocytic nevi of other parts of face (principal)

== ENCOUNTER → 2021-01-20 | Outpatient (REF) | payer MEDICARE, OTHER ==
[2021-01-20 11:55] LABS: BASO # 0.1 10^3/uL (0.0-0.2); BASO % 0.6 % (0.0-1.0); EOS # 0.3 10^3/uL (0.0-0.5); HEMATOCRIT 41.8 % (36.0-47.0); HEMOGLOBIN 13.1 g/dl (12.0-15.5); LYMPH # 4.5 10^3/uL (1.5-5.0); LYMPH % 52.4 % (24.0-44.0); MEAN CORPUSCULAR HEMOGLOBIN 27.8 pg (27.0-33.0); MEAN CORPUSCULAR HGB CONC 31.3 g/dl (32.0-36.5); MEAN CORPUSCULAR VOLUME 88.7 fl (80.0-96.0); MONO # 0.5 10^3/uL (0.0-0.8); MONO % 5.8 % (2.0-8.0); NEUTROPHILS # 3.3 10^3/uL (1.5-8.5); PLATELET COUNT, AUTOMATED 230 10^3/uL (150-450); RED BLOOD COUNT 4.71 10^6/uL (4.00-5.40); WHITE BLOOD COUNT 8.7 10^3/uL (4.0-10.0)
[2021-01-20 16:09] LABS: ALBUMIN 3.8 GM/DL (3.2-5.2); ALT/SGPT 21 U/L (12-78); BILIRUBIN,TOTAL 1.2 MG/DL (0.2-1.0); BLOOD UREA NITROGEN 19 MG/DL (7-18); CALCIUM LEVEL 9.2 MG/DL (8.8-10.2); CARBON DIOXIDE LEVEL 32 MEQ/L (21-32); CHLORIDE LEVEL 104 MEQ/L (98-107); CHOLESTEROL LEVEL 247 MG/DL (<200); CHOLESTEROL RISK RATIO 4.186 (<5); CREATININE FOR GFR 0.64 MG/DL (0.55-1.30); FERRITIN 23 NG/ML (8-252); GLOMERULAR FILTRATION RATE > 60.0 (>39); GLUCOSE, FASTING 149 MG/DL (70-100); HDL CHOLESTEROL 59 MG/DL (>40); IRON (FE) 85 UG/DL (50-170); LDL CHOLESTEROL 146 MG/DL (<100); MAGNESIUM LEVEL 2.2 MG/DL (1.8-2.4); NON-HDL-C 188 MG/DL; PERCENT SATURATION 21.6 % (13.2-45.0); POTASSIUM SERUM 4.5 MEQ/L (3.5-5.1); SODIUM LEVEL 139 MEQ/L (136-145); TOTAL IRON BINDING CAPACITY 393 UG/DL (250-450); TOTAL PROTEIN 6.8 GM/DL (6.4-8.2); TRIGLYCERIDES LEVEL 212 MG/DL (<150)
[2021-01-20 16:11] LABS: TOTAL 25(OH) VITAMIN D 38.4 NG/ML (30.0-100.0); VITAMIN B12 LEVEL 207 PG/ML (247-911)
[2021-01-20 16:12] LABS: FOLATE 16.9 NG/ML (>5.4)
== END ==
LOC: M SFHCCLAY 07:54
PROVIDERS: ATTEND Nurse Practitioner Family
DX: E78.5 Hyperlipidemia, unspecified (principal); Z98.84 Bariatric surgery status; Z79.899 Other long term (current) drug therapy
CPT/HCPCS: 80053; 80061; 82306; 82607; 82728; 82746; 83550; 83735; 85025; G0463

== ENCOUNTER → 2021-06-20 | Outpatient (REF) | payer MEDICARE, OTHER ==
[2021-06-20 15:15] LABS: ALBUMIN 3.6 GM/DL (3.2-5.2); BILIRUBIN,DIRECT 0.3 MG/DL (0.0-0.2); BILIRUBIN,TOTAL 1.5 MG/DL (0.2-1.0); CHOLESTEROL RISK RATIO 3.019 (<5); TOTAL PROTEIN 6.7 GM/DL (6.4-8.2)
== END ==
LOC: M SFHCCLAY 07:55
PROVIDERS: ATTEND Nurse Practitioner Family
DX: Z86.39 Personal history of other endocrine, nutritional and metabolic disease (principal); E78.5 Hyperlipidemia, unspecified

== ENCOUNTER → 2021-08-19 | Outpatient (REF) | payer MEDICARE, OTHER ==
[~2021-08-19] MED LIST changes: +BISO1TAB18 PO; -BISO5TAB2 PO; -LISI-898 PO; +LISI5TAB11 PO
[2021-08-19 12:00] LABS: ALBUMIN 3.5 GM/DL (3.2-5.2); ALT/SGPT 23 U/L (12-78); BILIRUBIN,TOTAL 1.7 MG/DL (0.2-1.0); BLOOD UREA NITROGEN 13 MG/DL (7-18); CALCIUM LEVEL 8.4 MG/DL (8.8-10.2); CARBON DIOXIDE LEVEL 30 MEQ/L (21-32); CHLORIDE LEVEL 106 MEQ/L (98-107); CREATININE FOR GFR 0.54 MG/DL (0.55-1.30); GLOMERULAR FILTRATION RATE > 60.0 (>39); GLUCOSE, FASTING 131 MG/DL (70-100); POTASSIUM SERUM 4.2 MEQ/L (3.5-5.1); SODIUM LEVEL 141 MEQ/L (136-145); TOTAL PROTEIN 6.7 GM/DL (6.4-8.2)
[2021-08-19 12:20] LABS: HEPATITIS B SURFACE ANTIGEN NEGATIVE (NEGATIVE)
[2021-08-19 12:48] LABS: HEPATITIS B CORE ANTIBODY IGM NEGATIVE (NEGATIVE); HEPATITIS C VIRUS ABY INDEX 0.1 INDEX (<0.8)
== END ==
LOC: M SFHCCLAY 08:34
PROVIDERS: ATTEND Nurse Practitioner Family
DX: R17 Unspecified jaundice (principal)

== ENCOUNTER → 2021-09-16 | Outpatient (CLI) | payer MEDICARE, OTHER | LOC: M CLY 10:24 | PROVIDERS: ATTEND Family Medicine | DX: L40.0 Psoriasis vulgaris (principal) ==

== ENCOUNTER → 2021-12-01 | Outpatient (REF) | payer MEDICARE, OTHER | LOC: M SFHCCLAY 13:37 | PROVIDERS: ATTEND Physician Assistant | DX: N39.0 Urinary tract infection, site not specified (principal) ==

== ENCOUNTER → 2022-01-07 | Outpatient (REF) | payer MEDICARE, OTHER ==
[2022-01-07 11:49] LABS: ALBUMIN 3.7 GM/DL (3.2-5.2); ALT/SGPT 23 U/L (12-78); BILIRUBIN,TOTAL 1.9 MG/DL (0.2-1.0); BLOOD UREA NITROGEN 20 MG/DL (7-18); CALCIUM LEVEL 9.1 MG/DL (8.8-10.2); CARBON DIOXIDE LEVEL 31 MEQ/L (21-32); CHLORIDE LEVEL 103 MEQ/L (98-107); CHOLESTEROL LEVEL 141 MG/DL (<200); CHOLESTEROL RISK RATIO 2.611 (<5); CREATININE FOR GFR 0.62 MG/DL (0.55-1.30); GLOMERULAR FILTRATION RATE > 60.0 (>39); GLUCOSE, FASTING 121 MG/DL (70-100); HDL CHOLESTEROL 54 MG/DL (>40); LDL CHOLESTEROL 48 MG/DL (<100); NON-HDL-C 87 MG/DL; POTASSIUM SERUM 4.6 MEQ/L (3.5-5.1); SODIUM LEVEL 138 MEQ/L (136-145); TOTAL PROTEIN 6.6 GM/DL (6.4-8.2); TRIGLYCERIDES LEVEL 195 MG/DL (<150)
[2022-01-07 13:06] LABS: HEMOGLOBIN A1c 6.4 %
== END ==
LOC: M SFHCCLAY 07:58
PROVIDERS: ATTEND Nurse Practitioner Family
DX: I10 Essential (primary) hypertension (principal); R17 Unspecified jaundice; E78.5 Hyperlipidemia, unspecified; K21.9 Gastro-esophageal reflux disease without esophagitis; E55.9 Vitamin D deficiency, unspecified; L40.50 Arthropathic psoriasis, unspecified; E11.65 Type 2 diabetes mellitus with hyperglycemia; F32.A Depression, unspecified

== ENCOUNTER → 2022-02-12 | Outpatient (CLI) | payer MEDICARE, OTHER ==
[~2022-02-12] MED LIST changes: +PROHANCE 279.3MG/ML 15ML VIAL As Ordered ONE; +PROHANCE 279.3MG/ML 5ML VIAL As Ordered ONE
== END ==
LOC: M RAD 13:53
PROVIDERS: ATTEND Nurse Practitioner Family
DX: K75.81 Nonalcoholic steatohepatitis (NASH) (principal); K74.00 Hepatic fibrosis, unspecified; Z90.49 Acquired absence of other specified parts of digestive tract; Z98.84 Bariatric surgery status; N28.1 Cyst of kidney, acquired
CPT/HCPCS: 74183; A9576

== ENCOUNTER → 2022-02-18 | Outpatient (REF) | payer MEDICARE, OTHER ==
[~2022-02-18] MED LIST changes: -PROHANCE 279.3MG/ML 15ML VIAL As Ordered ONE; -PROHANCE 279.3MG/ML 5ML VIAL As Ordered ONE
== END ==
LOC: M SFHCCLAY 11:10
PROVIDERS: ATTEND Physician Assistant
DX: R05.9 Cough, unspecified (principal); Z79.899 Other long term (current) drug therapy

== ENCOUNTER → 2022-06-02 | Outpatient (REF) | payer MEDICARE, OTHER ==
[2022-06-02 12:47] LABS: HEMOGLOBIN A1c 6.4 %
[2022-06-02 13:05] LABS: ALBUMIN 3.6 GM/DL (3.2-5.2); ALKALINE PHOSPHATASE 66 U/L (45-117); ALT/SGPT 18 U/L (12-78); AST/SGOT 11 U/L (7-37); BILIRUBIN,TOTAL 2.3 MG/DL (0.2-1.0); BLOOD UREA NITROGEN 14 MG/DL (7-18); CALCIUM LEVEL 8.9 MG/DL (8.8-10.2); CARBON DIOXIDE LEVEL 29 MEQ/L (21-32); CHLORIDE LEVEL 104 MEQ/L (98-107); CREATININE FOR GFR 0.61 MG/DL (0.55-1.30); GLOMERULAR FILTRATION RATE > 60.0 (>39); GLUCOSE, FASTING 115 MG/DL (70-100); POTASSIUM SERUM 4.7 MEQ/L (3.5-5.1); SODIUM LEVEL 138 MEQ/L (136-145); TOTAL PROTEIN 6.7 GM/DL (6.4-8.2)
== END ==
LOC: M SFHCCLAY 07:39
PROVIDERS: ATTEND Nurse Practitioner Family
DX: E78.5 Hyperlipidemia, unspecified (principal); I10 Essential (primary) hypertension; E55.9 Vitamin D deficiency, unspecified; K75.81 Nonalcoholic steatohepatitis (NASH); K74.00 Hepatic fibrosis, unspecified; E11.65 Type 2 diabetes mellitus with hyperglycemia

== ENCOUNTER → 2022-10-21 | Outpatient (REF) | payer MEDICARE, OTHER ==
[2022-10-21 12:09] LABS: BASO % 0.5 % (0.0-1.0); EOS # 0.1 10^3/uL (0.0-0.5); EOS % 2.2 % (0.0-3.0); HEMATOCRIT 38.5 % (36.0-47.0); HEMOGLOBIN 12.2 g/dl (12.0-15.5); LYMPH % 46.9 % (24.0-44.0); MEAN CORPUSCULAR HEMOGLOBIN 26.9 pg (27.0-33.0); MEAN CORPUSCULAR HGB CONC 31.7 g/dl (32.0-36.5); MONO # 0.4 10^3/uL (0.0-0.8); MONO % 6.8 % (2.0-8.0); NEUTROPHILS # 2.8 10^3/uL (1.5-8.5); NEUTROPHILS % 43.4 % (36.0-66.0); PLATELET COUNT, AUTOMATED 186 10^3/uL (150-450); RED BLOOD COUNT 4.53 10^6/uL (4.00-5.40); WHITE BLOOD COUNT 6.4 10^3/uL (4.0-10.0)
[2022-10-21 12:12] LABS: ALBUMIN 3.8 G/DL (3.2-5.2); ALKALINE PHOSPHATASE 73 U/L (46-116); ALT/SGPT 20 U/L (7.0-40); AST/SGOT 18 U/L (<34); BILIRUBIN,TOTAL 1.9 MG/DL (0.3-1.2); BLOOD UREA NITROGEN 17 MG/DL (9-23); CALCIUM LEVEL 8.9 MG/DL (8.3-10.6); CARBON DIOXIDE LEVEL 30 MMOL/L (20-31); CHLORIDE LEVEL 104 MMOL/L (98-107); CHOLESTEROL LEVEL 140 MG/DL (<200); CHOLESTEROL RISK RATIO 2.22 (<5); CREATININE FOR GFR 0.53 MG/DL (0.55-1.30); GLOMERULAR FILTRATION RATE > 60.0 (>39); GLUCOSE, FASTING 127 MG/DL (74-106); HDL CHOLESTEROL 62.9 MG/DL (>40); LDL CHOLESTEROL 53.3 MG/DL (<100); NON-HDL-C 77 MG/DL; POTASSIUM SERUM 4.3 MMOL/L (3.5-5.1); SODIUM LEVEL 142 MMOL/L (136-145); TOTAL PROTEIN 6.5 G/DL (5.7-8.2); TRIGLYCERIDES LEVEL 119 MG/DL (<150)
[2022-10-21 12:23] LABS: HEMOGLOBIN A1c 6.2 % (4.0-6.0)
== END ==
LOC: M SFHCCLAY 07:48
PROVIDERS: ATTEND Nurse Practitioner Family
DX: Z98.84 Bariatric surgery status (principal); I10 Essential (primary) hypertension; E78.5 Hyperlipidemia, unspecified; E55.9 Vitamin D deficiency, unspecified; K75.81 Nonalcoholic steatohepatitis (NASH); K74.00 Hepatic fibrosis, unspecified; E11.65 Type 2 diabetes mellitus with hyperglycemia; K21.9 Gastro-esophageal reflux disease without esophagitis; L40.50 Arthropathic psoriasis, unspecified; F32.A Depression, unspecified

== ENCOUNTER → 2022-10-21 | Outpatient (CLI) | payer MEDICARE, OTHER | LOC: M CLY 08:09 | PROVIDERS: ATTEND Nurse Practitioner Family | DX: L40.0 Psoriasis vulgaris (principal) ==

== ENCOUNTER → 2023-04-21 | Outpatient (REF) | payer MEDICARE, OTHER ==
[2023-04-21 18:34] LABS: ALBUMIN 3.8 G/DL (3.2-5.2); ALKALINE PHOSPHATASE 75 U/L (46-116); ALT/SGPT 21 U/L (7.0-40); AST/SGOT 15 U/L (<34); BILIRUBIN,TOTAL 1.9 MG/DL (0.3-1.2); BLOOD UREA NITROGEN 16 MG/DL (9-23); CALCIUM LEVEL 9.1 MG/DL (8.3-10.6); CARBON DIOXIDE LEVEL 32 MMOL/L (20-31); CHLORIDE LEVEL 103 MMOL/L (98-107); CREATININE FOR GFR 0.51 MG/DL (0.55-1.30); GLOMERULAR FILTRATION RATE > 60.0 (>39); GLUCOSE, FASTING 93 MG/DL (74-106); POTASSIUM SERUM 4.3 MMOL/L (3.5-5.1); SODIUM LEVEL 141 MMOL/L (136-145); TOTAL PROTEIN 6.5 G/DL (5.7-8.2)
[2023-04-21 19:27] LABS: HEMOGLOBIN A1c 6.9 % (4.0-6.0)
== END ==
LOC: M SFHCCLAY 13:17
PROVIDERS: ATTEND Nurse Practitioner Family
DX: I10 Essential (primary) hypertension (principal); E78.5 Hyperlipidemia, unspecified; E55.9 Vitamin D deficiency, unspecified; K75.81 Nonalcoholic steatohepatitis (NASH); K74.00 Hepatic fibrosis, unspecified; E11.65 Type 2 diabetes mellitus with hyperglycemia

== ENCOUNTER → 2023-07-07 | Outpatient (CLI) | payer MEDICARE, OTHER | LOC: M CLY 08:35 | PROVIDERS: ATTEND Nurse Practitioner Family | DX: R05.1 Acute cough (principal) ==

== ENCOUNTER → 2023-07-08 | Outpatient (REF) | payer MEDICARE, OTHER | LOC: M CLY 08:29 | PROVIDERS: ATTEND Nurse Practitioner Family | DX: R05.1 Acute cough (principal) ==

== ENCOUNTER → 2023-11-05 | Outpatient (REF) | payer MEDICARE, OTHER ==
[2023-11-05 12:37] LABS: ALBUMIN 3.8 G/DL (3.2-5.2); ALKALINE PHOSPHATASE 71 U/L (46-116); ALT/SGPT 18 U/L (7.0-40); AST/SGOT 13 U/L (<34); BILIRUBIN,TOTAL 1.9 MG/DL (0.3-1.2); BLOOD UREA NITROGEN 18 MG/DL (9-23); CALCIUM LEVEL 8.7 MG/DL (8.3-10.6); CARBON DIOXIDE LEVEL 32 MMOL/L (20-31); CHLORIDE LEVEL 101 MMOL/L (98-107); CHOLESTEROL LEVEL 135 MG/DL (<200); CREATININE FOR GFR 0.49 MG/DL (0.55-1.30); GLOMERULAR FILTRATION RATE > 60.0 (>39); GLUCOSE, FASTING 161 MG/DL (74-106); HDL CHOLESTEROL 56.2 MG/DL (>40); MAGNESIUM LEVEL 1.7 MG/DL (1.8-2.4); NON-HDL-C 78.8 MG/DL; POTASSIUM SERUM 4.2 MMOL/L (3.5-5.1); SODIUM LEVEL 138 MMOL/L (136-145); TOTAL PROTEIN 6.4 G/DL (5.7-8.2); TRIGLYCERIDES LEVEL 154 MG/DL (<150)
[2023-11-05 12:39] LABS: BASO % 0.4 % (0.0-1.0); EOS # 0.2 10^3/uL (0.0-0.5); EOS % 2.3 % (0.0-3.0); HEMATOCRIT 37.5 % (36.0-47.0); HEMOGLOBIN 13.1 g/dl (12.0-15.5); LYMPH # 4.1 10^3/uL (1.5-5.0); LYMPH % 54.9 % (24.0-44.0); MEAN CORPUSCULAR HEMOGLOBIN 32.1 pg (27.0-33.0); MEAN CORPUSCULAR HGB CONC 34.9 g/dl (32.0-36.5); MEAN CORPUSCULAR VOLUME 91.9 fl (80.0-96.0); MONO # 0.5 10^3/uL (0.0-0.8); MONO % 6.6 % (2.0-8.0); NEUTROPHILS # 2.6 10^3/uL (1.5-8.5); NEUTROPHILS % 35.7 % (36.0-66.0); PLATELET COUNT, AUTOMATED 186 10^3/uL (150-450); RED BLOOD COUNT 4.08 10^6/uL (4.00-5.40); WHITE BLOOD COUNT 7.4 10^3/uL (4.0-10.0)
[2023-11-05 12:43] LABS: FREE T4 1.07 NG/DL (0.89-1.76); TOTAL 25(OH) VITAMIN D 67.6 NG/ML (20.0-100.0)
[2023-11-05 12:44] LABS: VITAMIN B12 LEVEL 310 PG/ML (211-911)
[2023-11-05 12:53] LABS: HEMOGLOBIN A1c 7.6 % (4.0-6.0)
== END ==
LOC: M SFHCCLAY 07:48
PROVIDERS: ATTEND Nurse Practitioner Family
DX: I10 Essential (primary) hypertension (principal); E78.5 Hyperlipidemia, unspecified; E55.9 Vitamin D deficiency, unspecified; K75.81 Nonalcoholic steatohepatitis (NASH); K74.00 Hepatic fibrosis, unspecified; E11.65 Type 2 diabetes mellitus with hyperglycemia; K21.9 Gastro-esophageal reflux disease without esophagitis; L40.50 Arthropathic psoriasis, unspecified; F32.A Depression, unspecified; Z86.39 Personal history of other endocrine, nutritional and metabolic disease; Z98.84 Bariatric surgery status

== ENCOUNTER → 2023-11-08 | Outpatient (REF) | payer MEDICARE, OTHER ==
[2023-11-08 18:09] LABS: CREATININE, URINE 114.6 MG/DL; MAU/CREAT RATIO 10.4 MCG/MG (0.0-30.0)
== END ==
LOC: M SFHCCLAY 16:25
PROVIDERS: ATTEND Nurse Practitioner Family
DX: Z86.39 Personal history of other endocrine, nutritional and metabolic disease (principal)

== ENCOUNTER → 2023-12-09 | Outpatient (CLI) | payer MEDICARE, OTHER | LOC: M CLY 09:34 | PROVIDERS: ATTEND Nurse Practitioner Family | DX: L40.0 Psoriasis vulgaris (principal); Z51.81 Encounter for therapeutic drug level monitoring; Z79.899 Other long term (current) drug therapy ==

== ENCOUNTER → 2024-01-20 | Outpatient (REF) | payer MEDICARE, OTHER ==
[2024-01-20 12:32] LABS: ALBUMIN 3.7 G/DL (3.2-5.2); ALKALINE PHOSPHATASE 70 U/L (46-116); ALT/SGPT 19 U/L (7.0-40); AST/SGOT 15 U/L (<34); BILIRUBIN,TOTAL 1.7 MG/DL (0.3-1.2); BLOOD UREA NITROGEN 13 MG/DL (9-23); CALCIUM LEVEL 8.6 MG/DL (8.3-10.6); CARBON DIOXIDE LEVEL 31 MMOL/L (20-31); CHLORIDE LEVEL 103 MMOL/L (98-107); CREATININE FOR GFR 0.56 MG/DL (0.55-1.30); GLOMERULAR FILTRATION RATE > 60.0 (>39); GLUCOSE, FASTING 125 MG/DL (74-106); POTASSIUM SERUM 4.9 MMOL/L (3.5-5.1); SODIUM LEVEL 140 MMOL/L (136-145); TOTAL PROTEIN 6.4 G/DL (5.7-8.2)
[2024-01-20 12:50] LABS: HEMOGLOBIN A1c 6.5 % (4.0-6.0)
== END ==
LOC: M SFHCCLAY 07:25
PROVIDERS: ATTEND Nurse Practitioner Family
DX: E11.65 Type 2 diabetes mellitus with hyperglycemia (principal); I10 Essential (primary) hypertension; E78.5 Hyperlipidemia, unspecified; E55.9 Vitamin D deficiency, unspecified; K75.81 Nonalcoholic steatohepatitis (NASH); K74.00 Hepatic fibrosis, unspecified

== ENCOUNTER → 2024-04-20 | Outpatient (REF) | payer MEDICARE, OTHER ==
[2024-04-20 13:03] LABS: ALBUMIN 3.6 G/DL (3.2-5.2); ALKALINE PHOSPHATASE 73 U/L (46-116); ALT/SGPT 17 U/L (7.0-40); AST/SGOT 11 U/L (<34); BILIRUBIN,TOTAL 1.8 MG/DL (0.3-1.2); BLOOD UREA NITROGEN 12 MG/DL (9-23); CALCIUM LEVEL 8.6 MG/DL (8.3-10.6); CARBON DIOXIDE LEVEL 28 MMOL/L (20-31); CHLORIDE LEVEL 105 MMOL/L (98-107); CREATININE FOR GFR 0.55 MG/DL (0.55-1.30); GLOMERULAR FILTRATION RATE > 60.0 (>39); GLUCOSE, FASTING 114 MG/DL (74-106); POTASSIUM SERUM 4.6 MMOL/L (3.5-5.1); SODIUM LEVEL 139 MMOL/L (136-145); TOTAL PROTEIN 6.1 G/DL (5.7-8.2)
== END ==
LOC: M SFHCCLAY 07:18
PROVIDERS: ATTEND Nurse Practitioner Family
DX: E11.65 Type 2 diabetes mellitus with hyperglycemia (principal); K21.9 Gastro-esophageal reflux disease without esophagitis

== ENCOUNTER → 2024-07-25 | Outpatient (REF) | payer MEDICARE, OTHER ==
[2024-07-25 17:34] LABS: CREATININE, URINE 142.1 MG/DL; MAU/CREAT RATIO 4.2 MCG/MG (0.0-30.0)
== END ==
LOC: M LABDRAWC 16:48
PROVIDERS: ATTEND Nurse Practitioner Family
DX: Z86.39 Personal history of other endocrine, nutritional and metabolic disease (principal)

== ENCOUNTER → 2024-07-25 | Outpatient (REF) | payer MEDICARE, OTHER ==
[2024-07-25 11:40] LABS: BASO # 0.1 10^3/uL (0.0-0.2); BASO % 0.8 % (0.0-1.0); EOS # 0.2 10^3/uL (0.0-0.5); EOS % 2.3 % (0.0-3.0); HEMATOCRIT 36.2 % (36.0-47.0); LYMPH # 3.6 10^3/uL (1.5-5.0); LYMPH % 54.5 % (24.0-44.0); MEAN CORPUSCULAR HEMOGLOBIN 28.2 pg (27.0-33.0); MEAN CORPUSCULAR HGB CONC 33.1 g/dl (32.0-36.5); MEAN CORPUSCULAR VOLUME 85.2 fl (80.0-96.0); MONO # 0.4 10^3/uL (0.0-0.8); MONO % 6.3 % (2.0-8.0); NEUTROPHILS # 2.4 10^3/uL (1.5-8.5); NEUTROPHILS % 35.9 % (36.0-66.0); PLATELET COUNT, AUTOMATED 208 10^3/uL (150-450); RED BLOOD COUNT 4.25 10^6/uL (4.00-5.40); WHITE BLOOD COUNT 6.6 10^3/uL (4.0-10.0)
[2024-07-25 12:18] LABS: ALBUMIN 3.4 G/DL (3.2-5.2); ALKALINE PHOSPHATASE 81 U/L (35-104); ALT/SGPT 14 U/L (7.0-40); AST/SGOT 8 U/L (<34); BILIRUBIN,TOTAL 1.7 MG/DL (0.3-1.2); BLOOD UREA NITROGEN 16 MG/DL (9-23); CALCIUM LEVEL 9.3 MG/DL (8.3-10.6); CARBON DIOXIDE LEVEL 30 MMOL/L (20-31); CHLORIDE LEVEL 104 MMOL/L (98-107); CHOLESTEROL LEVEL 161 MG/DL (<200); CHOLESTEROL RISK RATIO 2.86 (<5); CREATININE FOR GFR 0.57 MG/DL (0.55-1.30); GLOMERULAR FILTRATION RATE > 60.0 (>39); GLUCOSE, FASTING 106 MG/DL (74-106); HDL CHOLESTEROL 56.1 MG/DL (>40); LDL CHOLESTEROL 79.5 MG/DL (<100); NON-HDL-C 104.9 MG/DL; POTASSIUM SERUM 4.5 MMOL/L (3.5-5.1); SODIUM LEVEL 138 MMOL/L (136-145); TOTAL PROTEIN 6.7 G/DL (5.7-8.2); TRIGLYCERIDES LEVEL 127 MG/DL (<150)
[2024-07-25 12:20] LABS: THYROID STIMULATING HORMONE 0.894 uIU/ML (0.55-4.78)
== END ==
LOC: M SFHCCLAY 07:27
PROVIDERS: ATTEND Nurse Practitioner Family
DX: E11.65 Type 2 diabetes mellitus with hyperglycemia (principal); I10 Essential (primary) hypertension; E78.5 Hyperlipidemia, unspecified; E55.9 Vitamin D deficiency, unspecified; K21.9 Gastro-esophageal reflux disease without esophagitis; L40.50 Arthropathic psoriasis, unspecified; R17 Unspecified jaundice; F32.A Depression, unspecified; Z86.39 Personal history of other endocrine, nutritional and metabolic disease; Z98.84 Bariatric surgery status

== ENCOUNTER → 2025-01-17 | Outpatient (REF) | payer MEDICARE, OTHER ==
[2025-01-17 13:54] LABS: ALBUMIN 3.5 G/DL (3.2-5.2); ALKALINE PHOSPHATASE 84 U/L (35-104); ALT/SGPT 15 U/L (7.0-40); AST/SGOT 13 U/L (<34); BILIRUBIN,TOTAL 1.7 MG/DL (0.3-1.2); BLOOD UREA NITROGEN 14 MG/DL (9-23); CALCIUM LEVEL 8.8 MG/DL (8.3-10.6); CARBON DIOXIDE LEVEL 32 MMOL/L (20-31); CHLORIDE LEVEL 104 MMOL/L (98-107); CREATININE FOR GFR 0.55 MG/DL (0.55-1.30); GLOMERULAR FILTRATION RATE > 90.0 (>39); GLUCOSE, FASTING 109 MG/DL (74-106); POTASSIUM SERUM 4.9 MMOL/L (3.5-5.1); SODIUM LEVEL 142 MMOL/L (136-145); TOTAL PROTEIN 6.4 G/DL (5.7-8.2)
== END ==
LOC: M SFHCCLAY 08:14
PROVIDERS: ATTEND Nurse Practitioner Family
DX: E11.65 Type 2 diabetes mellitus with hyperglycemia (principal)

== ENCOUNTER → 2025-01-25 | Outpatient (CLI) | payer MEDICARE, OTHER | LOC: M CLY 14:31 | PROVIDERS: ATTEND Nurse Practitioner Family | DX: L40.0 Psoriasis vulgaris (principal); Z51.81 Encounter for therapeutic drug level monitoring; Z79.899 Other long term (current) drug therapy ==

== ENCOUNTER → 2025-05-31 | Outpatient (REF) | payer MEDICARE, OTHER | LOC: M SFHCCLAY 08:57 | PROVIDERS: ATTEND Physician Assistant | DX: L02.31 Cutaneous abscess of buttock (principal) ==

== ENCOUNTER → 2025-08-27 | Outpatient (REF) | payer MEDICARE, OTHER ==
[2025-08-27 12:23] LABS: ALT/SGPT 14 U/L (7.0-40); AST/SGOT 17 U/L (<34); CALCIUM LEVEL 8.6 MG/DL (8.3-10.6); CARBON DIOXIDE LEVEL 32 MMOL/L (20-31); CHLORIDE LEVEL 102 MMOL/L (98-107); CREATININE FOR GFR 0.55 MG/DL (0.55-1.30); GLOMERULAR FILTRATION RATE > 90.0 (>39); POTASSIUM SERUM 4.4 MMOL/L (3.5-5.1); SODIUM LEVEL 141 MMOL/L (136-145)
[2025-08-27 13:01] LABS: ESTIMATED AVERAGE GLUCOSE 126.0 MG/DL (60-110)
== END ==
LOC: M SFHCCLAY 08:06
PROVIDERS: ATTEND Nurse Practitioner Family
DX: E11.65 Type 2 diabetes mellitus with hyperglycemia (principal)